=== PATIENT | male | born 1975 | race Caucasian/White ===

== ENCOUNTER → 2020-11-24 | Outpatient (CLI) | payer BC ==
[2020-11-24 07:56] LABS: BUN/CREATININE RATIO 17 (0-10)
== END ==
LOC: LAB 07:05
PROVIDERS: Family Medicine
DX: I10 Essential (primary) hypertension (principal); E03.9 Hypothyroidism, unspecified; Z80.42 Family history of malignant neoplasm of prostate
CPT/HCPCS: 36415; 80053; 80061; 84153; 84443

== ENCOUNTER → 2020-12-05 | Outpatient (CLI) | payer BC | LOC: NM 14:49 | DX: R07.89 Other chest pain (principal) ==

== ENCOUNTER → 2020-12-30 | Outpatient (CLI) | payer BC ==
[2020-12-30 08:09] LABS: HEMOGLOBIN 16.2 gm/dl (14.0-17.5); RED BLOOD COUNT 5.17 M/UL (4.20-5.50)
[2020-12-30 08:23] LABS: BUN/CREATININE RATIO 13 (0-10)
== END ==
LOC: LAB 07:32
DX: I42.9 Cardiomyopathy, unspecified (principal); R94.39 Abnormal result of other cardiovascular function study; R00.2 Palpitations
CPT/HCPCS: 36415; 80053; 84439; 84443; 85025; 85610